=== PATIENT | male | born 1980 | race Caucasian/White ===

== ENCOUNTER → 2018-02-13 | Outpatient (CLI) | payer OTHER ==
--- NOTE | 2018-02-13 14:39 | XR ---
EXAM TYPE: LUMBAR SPINE X RAY SERIES COMPARISON: NONE HISTORY: Pain TECHNIQUE: 4 views are submitted. FINDINGS: Alignment is anatomic. The pedicles are intact. The transverse processes are intact. There is a cu rvature the spine with multilevel moderate to severe degenerative disc disease. There is grade 1 ante rolisthesis L5 on S1 with suspected bilateral spondylolysis. IMPRESSION: 1. Multilevel moderate to severe degenerative disc disease with facet arthropathy. There is a grade 1 anterolisthesis L5 on S1 with suspected bilateral spondylolysis. Recommend follow-up MRI.
== END | disposition home or self-care (01) ==
LOC: RADXRMAIN 14:10
PROVIDERS: ATTEND Family Medicine
DX: M43.16 Spondylolisthesis, lumbar region (principal); M51.36 Other intervertebral disc degeneration, lumbar region; M46.96 Unspecified inflammatory spondylopathy, lumbar region
CPT/HCPCS: 72110